=== PATIENT | male | born 1970 | race Caucasian/White ===

== ENCOUNTER 2016-07-20 09:23 | Emergency (ER) | payer BC ==
--- NOTE | 2016-07-20 11:23 | EDDOCDS ---
Physician Documentation [facility] Name: Manuel Silva Age: 45 yrs Sex: Male : 1970 Arrival Date: 07/20/2016 Time: 09:23 Bed PR Private MD: No Pcp Disposition: 07/20/16 10:58 Discharged to Home/Self Care. Impression: Sprain of tibiofibular ligament of left ankle. - Condition is Stable. - Discharge Instructions: Elastic Bandage and RICE, Ankle Sprain, [id number], Stirrup Ankle Brace, Obnu-yq-Cvqz. - Medication Reconciliation, Local Pharmacy Hours form. - Follow up: Orthopaedics, [facility]; When: Call to arrange an appointment; Reason: Further diagnostic work-up, Recheck today's complaints, Continuance of care. - Problem is new. - Symptoms are unchanged. Historical: - Allergies: no known allergies; - Home Meds: 1. none - PMHx: none; - PSHx: none; - Social history: Smoking status: Patient uses tobacco products, heavy tobacco smoker. No barriers to communication noted, The patient speaks fluent Urdu. - Family history: No immediate family members are acutely ill. - : The pt / caregiver states he / she is not on anticoagulants. Home medication list is obtained from the patient. - Exposure Risk Screening:: None identified. Vital Signs: 07/20 09:26 BP 128 / 78; Pulse 70; Resp 16; Temp 97.1(O); Pulse Ox 100% ; Weight 79.38 kg / 175 cmb lbs; Height 5 ft. 11 in. (180.34 cm); Pain 7/10; 11:09 BP 125 / 82; Pulse 73; Resp 16; Temp 99.1(TE); Pulse Ox 98% on R/A; Pain 5/10; ar3 09:26 Body Mass Index 24.41 (79.38 kg, 180.34 cm) cmb MDM: 09:39 Ankle, Complete Ordered. EDMS 09:47 Financial registration complete. lg 10:58 Gilberto Wrap ordered. btw 10:58 Apply Air Cast to Patient. ordered. btw Signatures: Dispatcher [employer] EDRosario Manning, Wolfgang Goss lg Josh Cazares PA PA btw Jasmyne Madera RN RN mk4 Adán Heath,RN RN mb9 LEXISD
--- NOTE | 2016-07-20 11:23 | EDDOCDS ---
Nurse's Notes [facility] Name: Manuel Silva Age: 45 yrs Sex: Male : 1970 Arrival Date: 07/20/2016 Time: 09:23 Bed PR Private MD: No Pcp Diagnosis: Sprain of tibiofibular ligament of left ankle Presentation: 07/20 09:33 Presenting complaint: Patient states: slipped on ice this am and injured left ankle. mk4 Adult Sepsis Screening: The patient does not have new or worsening altered mentation. Patient's respiratory rate is less than 22. Systolic blood pressure is greater than 100. Patient has a qSOFA score of 0- Negative Sepsis Screen. Suicide/Homicide risk assessment- the patient denies having any suicidal and/or homicidal ideations and does not present with any other emotional, behavioral or mental health complaints. 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 Transition of care: patient was not received from another setting of care. 09:33 Acuity: ASHA Level 4 mk4 09:33 Method Of Arrival: Walkin/Carried/Asstd mk4 Triage Assessment: 09:34 General: Appears uncomfortable. Pain: Location: left lateral ankle Pain currently is 7 mk4 out of 10 on a pain scale. HIV screening NA for this visit Offered previously. Musculoskeletal: No deficits noted. Historical: - Allergies: no known allergies; - Home Meds: 1. none - PMHx: none; - PSHx: none; - Social history: Smoking status: Patient uses tobacco products, heavy tobacco smoker. No barriers to communication noted, The patient speaks fluent Lithuanian. - Family history: No immediate family members are acutely ill. - : The pt / caregiver states he / she is not on anticoagulants. Home medication list is obtained from the patient. - Exposure Risk Screening:: None identified. Screenin:20 Screening information is obtained from the patient. Fall risk: No risks identified. mb9 Assistance ADL's: requires no assistance with activities of daily living. Abuse/DV Screen: The patient / caregiver reports he/she is: not in a situation that causes fear, pain or injury. Nutritional screening: No deficits noted. Advance Directives: There is no active DNR order. home support is adequate. Assessment: 11:20 General: Appears uncomfortable, Behavior is appropriate for age, cooperative. Pain: mb9 Location: left lateral ankle Pain currently is 3 out of 10 on a pain scale. Musculoskeletal: Circulation, motion, and sensation intact Capillary refill < 3 seconds Range of motion limited in left ankle. Vital Signs: 09:26 BP 128 / 78; Pulse 70; Resp 16; Temp 97.1(O); Pulse Ox 100% ; Weight 79.38 kg; Height 5 cmb ft. 11 in. (180.34 cm); Pain 7/10; 11:09 BP 125 / 82; Pulse 73; Resp 16; Temp 99.1(TE); Pulse Ox 98% on R/A; Pain 5/10; ar3 09:26 Body Mass Index 24.41 (79.38 kg, 180.34 cm) cmb Vitals: 09:26 Log In Time: July 20, 2016 at 09:22. cmb ED Course: 09:24 Patient visited by Darlene Pedersen. cmb 09:24 Patient moved to Waiting cmb 09:26 No Pcp is Private Physician. cmb 09:26 Patient moved to Pre RCE cmb 09:34 Triage Initiated mk4 09:34 Patient moved to Triage 3 mk4 09:35 Josh Cazares PA is PHCP. btw 09:35 Jyothi Garrett MD is Attending Physician. btw 09:35 Patient visited by Josh Cazares PA. btw 09:41 Patient moved to TR1 kcs 10:[facility]. btw 11:04 Patient moved to PR1 / 25 ar3 11:09 Patient visited by Claudette Meneses PCA. ar3 11:13 Patient name changed from Manuel\S\J\S\[place]\S\ to Manuel\S\Jameson\S\Ricardo. EDMS 11:20 The patient / caregiver is instructed regarding the plan of care and ED course. mb9 11:20 No IV's were initiated during this patient's visit. No procedures done that require mb9 assistance. 11:22 Gilberto wrap to left ankle. Patient has positive distal pulse, brisk capillary refill, and mb9 positive sensation after application. Air stirrup applied to left ankle Patient with positive distal sensation and brisk distal capillary refill after application. Order Results: There are currently no results for this order. Outcome: 10:58 Discharge ordered by Provider. btw 11:20 Discharge Assessment: Patient awake, alert and oriented x 3. No cognitive and/or mb9 functional deficits noted. Patient verbalized understanding of disposition instructions. patient administered narcotics - no. The following High Risk Discharge criteria are identified: None. Discharged to home ambulatory. Condition: good Condition: stable Condition: improved. Discharge instructions given to patient, Instructed on discharge instructions, follow up and referral plans. medication usage, Rest, Ice, Compression and Elevation. Demonstrated understanding of instructions, medications, Pt was receptive of discharge instructions/ teaching. No special radiology studies were completed. Property :Personal belongings accompany Pt. 11:22 Patient left the ED. mb9 Signatures: Dispatcher [employer] EDMS Salina Huston, RN RN Claudette Maier, JUDGE'S CLERK JUDGE'S CLERK ar3 Josh Cazares PA PA Darlene Jamison Margaret RN RN mk4 Adán Heath RN RN mb9 MTDMayuri
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
--- NOTE | 2016-07-22 12:23 | EDDOCDS ---
Physician Documentation [facility] Name: Manuel Silva Age: 45 yrs Sex: Male : 1970 Arrival Date: 07/20/2016 Time: 09:23 Bed PR Private MD: No Pcp Disposition: 07/20/16 10:58 Discharged to Home/Self Care. Impression: Sprain of tibiofibular ligament of left ankle. - Condition is Stable. - Discharge Instructions: Elastic Bandage and RICE, Ankle Sprain, Drug-yp-Dmsa, Stirrup Ankle Brace, Rvkp-vq-[id number]. - Medication Reconciliation, Local Pharmacy Hours form. - Follow up: Orthopaedics, [facility]; When: Call to arrange an appointment; Reason: Further diagnostic work-up, Recheck today's complaints, Continuance of care. - Problem is new. - Symptoms are unchanged. Historical: - Allergies: no known allergies; - Home Meds: 1. none - PMHx: none; - PSHx: none; - Social history: Smoking status: Patient uses tobacco products, heavy tobacco smoker. No barriers to communication noted, The patient speaks fluent Vietnamese. - Family history: No immediate family members are acutely ill. - : The pt / caregiver states he / she is not on anticoagulants. Home medication list is obtained from the patient. - Exposure Risk Screening:: None identified. Vital Signs: 07/20 09:26 BP 128 / 78; Pulse 70; Resp 16; Temp 97.1(O); Pulse Ox 100% ; Weight 79.38 kg / 175 cmb lbs; Height 5 ft. 11 in. (180.34 cm); Pain 7/10; 11:09 BP 125 / 82; Pulse 73; Resp 16; Temp 99.1(TE); Pulse Ox 98% on R/A; Pain 5/10; ar3 09:26 Body Mass Index 24.41 (79.38 kg, 180.34 cm) cmb MDM: 09:39 Ankle, Complete Ordered. EDMS 09:47 Financial registration complete. lg 10:58 Gilberto Wrap ordered. btw 10:58 Apply Air Cast to Patient. ordered. btw 11:23 [facility] Payment Agreement was scanned into [employer] and attached to record. lg 12:36 T-Sheet-- Draft Copy was scanned into [employer] and attached to record. gb Signatures: Dispatcher [employer] EDMS Brianda Ngo, Reg Reg gb Rosario Long, Reg Reg lg Josh Cazares PA PA btw King, Margaret, RN RN mk4 Adán HeathRN RN mb9 The chart was reviewed and I authenticate all verbal orders and agree with the evaluation and treatment provided.Attachments: 11:23 [facility] Payment Agreement lg 12:36 T-Sheet-- Draft Copy gb Chart Complete MTDD
--- NOTE | 2016-07-22 12:23 | EDDOCDS ---
Nurse's Notes [facility] Name: Manuel Silva Age: 45 yrs Sex: Male : 1970 Arrival Date: 07/20/2016 Time: 09:23 Bed PR Private MD: No Pcp Diagnosis: Sprain of tibiofibular ligament of left ankle Presentation: 07/20 09:33 Presenting complaint: Patient states: slipped on ice this am and injured left ankle. mk4 Adult Sepsis Screening: The patient does not have new or worsening altered mentation. Patient's respiratory rate is less than 22. Systolic blood pressure is greater than 100. Patient has a qSOFA score of 0- Negative Sepsis Screen. Suicide/Homicide risk assessment- the patient denies having any suicidal and/or homicidal ideations and does not present with any other emotional, behavioral or mental health complaints. Status: Patient is not a escalator service mechanic or dependent. Transition of care: patient was not received from another setting of care. 09:33 Acuity: ASHA Level 4 mk4 09:33 Method Of Arrival: Walkin/Carried/Asstd mk4 Triage Assessment: 09:34 General: Appears uncomfortable. Pain: Location: left lateral ankle Pain currently is 7 mk4 out of 10 on a pain scale. HIV screening NA for this visit Offered previously. Musculoskeletal: No deficits noted. Historical: - Allergies: no known allergies; - Home Meds: 1. none - PMHx: none; - PSHx: none; - Social history: Smoking status: Patient uses tobacco products, heavy tobacco smoker. No barriers to communication noted, The patient speaks fluent Korean. - Family history: No immediate family members are acutely ill. - : The pt / caregiver states he / she is not on anticoagulants. Home medication list is obtained from the patient. - Exposure Risk Screening:: None identified. Screenin:20 Screening information is obtained from the patient. Fall risk: No risks identified. mb9 Assistance ADL's: requires no assistance with activities of daily living. Abuse/DV Screen: The patient / caregiver reports he/she is: not in a situation that causes fear, pain or injury. Nutritional screening: No deficits noted. Advance Directives: There is no active DNR order. home support is adequate. Assessment: 11:20 General: Appears uncomfortable, Behavior is appropriate for age, cooperative. Pain: mb9 Location: left lateral ankle Pain currently is 3 out of 10 on a pain scale. Musculoskeletal: Circulation, motion, and sensation intact Capillary refill < 3 seconds Range of motion limited in left ankle. Vital Signs: 09:26 BP 128 / 78; Pulse 70; Resp 16; Temp 97.1(O); Pulse Ox 100% ; Weight 79.38 kg; Height 5 cmb ft. 11 in. (180.34 cm); Pain 7/10; 11:09 BP 125 / 82; Pulse 73; Resp 16; Temp 99.1(TE); Pulse Ox 98% on R/A; Pain 5/10; ar3 09:26 Body Mass Index 24.41 (79.38 kg, 180.34 cm) cmb Vitals: 09:26 Log In Time: July 20, 2016 at 09:22. cmb ED Course: 09:24 Patient visited by Darlene Pedersen. cmb 09:24 Patient moved to Waiting cmb 09:26 No Pcp is Private Physician. cmb 09:26 Patient moved to Pre RCE cmb 09:34 Triage Initiated mk4 09:34 Patient moved to Triage 3 mk4 09:35 Josh Cazares PA is PHCP. btw 09:35 Jyothi Garrett MD is Attending Physician. btw 09:35 Patient visited by Josh Cazares PA. btw 09:41 Patient moved to TR1 kcs 10:58 [facility]. btw 11:04 Patient moved to PR1 / 25 ar3 11:09 Patient visited by Claudette Meneses PCA. ar3 11:13 Patient name changed from Manuel\S\J\S\[place]\S\ to Manuel\S\[place]on\S\Ricardo. EDMS 11:20 The patient / caregiver is instructed regarding the plan of care and ED course. mb9 11:20 No IV's were initiated during this patient's visit. No procedures done that require mb9 assistance. 11:22 Gilberto wrap to left ankle. Patient has positive distal pulse, brisk capillary refill, and mb9 positive sensation after application. Air stirrup applied to left ankle Patient with positive distal sensation and brisk distal capillary refill after application. 11:23 [facility] Payment Agreement was scanned into [employer] and attached to record. lg 12:36 T-Sheet-- Draft Copy was scanned into [employer] and attached to record. gb 16:37 Ankle, Complete Returned. EDMS Order Results: Radiology Order: Ankle, Complete Test: Ankle, Complete REASON FOR EXAMINATION: Trauma; LEFT ANKLE, FOUR VIEWS:; ; HISTORY: Trauma.; ; There is no acute fracture or dislocation. The joint space is normal in; appearance.; ; IMPRESSION:; ; There is no acute fracture or dislocation.; ; ; Signed by; Virgilio Flanagan MD 07/20/2016 04:17 P; Outcome: 10:58 Discharge ordered by Provider. btw 11:20 Discharge Assessment: Patient awake, alert and oriented x 3. No cognitive and/or mb9 functional deficits noted. Patient verbalized understanding of disposition instructions. patient administered narcotics - no. The following High Risk Discharge criteria are identified: None. Discharged to home ambulatory. Condition: good Condition: stable Condition: improved. Discharge instructions given to patient, Instructed on discharge instructions, follow up and referral plans. medication usage, Rest, Ice, Compression and Elevation. Demonstrated understanding of instructions, medications, Pt was receptive of discharge instructions/ teaching. No special radiology studies were completed. Property :Personal belongings accompany Pt. 11:22 Patient left the ED. mb9 Signatures: Dispatcher [employer] EDDE Salina Huston, RN RN [facility] Brianda Ngo, Reg Reg gb Rosario Long, Reg Reg lg Claudette Meneses, SAP BW DEVELOPER SAP BW DEVELOPER ar3 Josh Cazares, NATI PA btDarlene Valdez Margaret RN RN mk4 Adán Heath RN RN mb9 Chart Complete MTDD
--- NOTE | 2016-07-22 12:23 | EDDOCDS ---
Physician Documentation [facility] Name: Manuel Silva Age: 45 yrs Sex: Male : 1970 Arrival Date: 07/20/2016 Time: 09:23 Bed PR Private MD: No Pcp Disposition: 07/20/16 10:58 Discharged to Home/Self Care. Impression: Sprain of tibiofibular ligament of left ankle. - Condition is Stable. - Discharge Instructions: Elastic Bandage and RICE, Ankle Sprain, Szoz-ty-Ilhe, Stirrup Ankle Brace, Iotc-wy-Bmtt. - Medication Reconciliation, Local Pharmacy Hours form. - Follow up: Orthopaedics, [facility]; When: Call to arrange an appointment; Reason: Further diagnostic work-up, Recheck today's complaints, Continuance of care. - Problem is new. - Symptoms are unchanged. Historical: - Allergies: no known allergies; - Home Meds: 1. none - PMHx: none; - PSHx: none; - Social history: Smoking status: Patient uses tobacco products, heavy tobacco smoker. No barriers to communication noted, The patient speaks fluent Slovak. - Family history: No immediate family members are acutely ill. - : The pt / caregiver states he / she is not on anticoagulants. Home medication list is obtained from the patient. - Exposure Risk Screening:: None identified. Vital Signs: 07/20 09:26 BP 128 / 78; Pulse 70; Resp 16; Temp 97.1(O); Pulse Ox 100% ; Weight 79.38 kg / 175 cmb lbs; Height 5 ft. 11 in. (180.34 cm); Pain 7/10; 11:09 BP 125 / 82; Pulse 73; Resp 16; Temp 99.1(TE); Pulse Ox 98% on R/A; Pain 5/10; ar3 09:26 Body Mass Index 24.41 (79.38 kg, 180.34 cm) cmb MDM: 09:39 Ankle, Complete Ordered. EDMS 09:47 Financial registration complete. lg 10:58 Gilberto Wrap ordered. btw 10:58 Apply Air Cast to Patient. ordered. btw 11:23 [facility] Payment Agreement was scanned into [email or web address] and attached to record. lg 12:36 T-Sheet-- Draft Copy was scanned into [email or web address] and attached to record. gb Signatures: Dispatcher [employer] EDMS Brianda Ngo, Reg Reg gb Rosario Long, Reg Reg lg Josh Cazares PA PA btw King, Margaret, RN RN mk4 Adán HeathRN RN mb9 The chart was reviewed and I authenticate all verbal orders and agree with the evaluation and treatment provided.Attachments: 11:23 [facility] Payment Agreement lg 12:36 T-Sheet-- Draft Copy gb Chart Complete MTDD
== END 2016-07-20 11:22 | disposition home or self-care (01) ==
LOC: M ED 09:23
DX: S93.602A Unspecified sprain of left foot, initial encounter (principal); W00.0XXA Fall on same level due to ice and snow, initial encounter; Y92.019 Unspecified place in single-family (private) house as the place of occurrence of the external cause; Y93.01 Activity, walking, marching and hiking; Y99.8 Other external cause status; F17.210 Nicotine dependence, cigarettes, uncomplicated

== ENCOUNTER 2017-06-30 15:45 | Emergency (ER) | payer BC, OTHER ==
[~2017-06-30] VITALS: Ht 180.3 cm; Wt 79.5 kg
[2017-06-30 15:45] VITALS: BP 149/86
[2017-06-30] MEDS ORDERED: IBUPROFEN 600 MG TAB PO ONE (17:15)
[2017-06-30] MEDS ORDERED: CIPR-249 PO (18:11)
--- NOTE | 2017-06-30 19:31 | REP ---
REASON FOR EXAM: Pain. COMPARISON: None. Right testicle measures 4.3 x 2.4 x 3.1 cm and the left 4.0 x 2.3 x 3 cm. The testicular parenchymal echo pattern and vascular pattern is normal bilaterally. The epididymal echo pattern and vascular pattern is normal bilaterally. There are incidental bilateral spermatoceles. They are rather large on the left with the largest one measuring approximately 3 cm in its greatest dimension. There is no evidence of a hydrocele. The right testicular RI is 0.6 and the left is 0.58. IMPRESSION: Bilateral spermatoceles. Signed by Chon Aguilar DO 06/30/2017 07:41 P
== END 2017-06-30 18:42 | disposition home or self-care (01) ==
LOC: M ED 15:45
DX: N45.1 Epididymitis (principal); F17.200 Nicotine dependence, unspecified, uncomplicated; N43.40 Spermatocele of epididymis, unspecified

== ENCOUNTER 2017-07-20 16:17 | Emergency (ER) | payer OTHER ==
[2017-07-20] MEDS ORDERED: AMOXICILLIN SUSP 400 MG/5 ML ORAL SYRINGE *ED PO (18:45)
[2017-07-20] MEDS: IBUPROFEN 800 MG TAB PO (19:15)
[2017-07-20] MEDS: PERCOCET 5MG/325MG TAB PO (19:16)
[2017-07-20 20:47] LABS: BASO # 0.1 10^3/uL (0.0-0.2); BASO % 0.5 % (0.0-1.0); EOS # 0.3 10^3/uL (0.0-0.50); EOS % 2.3 % (0.0-3.0); HEMATOCRIT 44.1 % (42.0-52.0); HEMOGLOBIN 14.8 g/dl (14.0-18.0); IMMATURE GRANULOCYTE # 0.1 10^3/uL (0-0); IMMATURE GRANULOCYTE % 0.4 % (0-0); LYMPH # 2.2 10^3/uL (1.5-4.5); LYMPH % 18.3 % (24.0-44.0); MEAN CORPUSCULAR HEMOGLOBIN 30.7 pg (27.0-33.0); MEAN CORPUSCULAR HGB CONC 33.6 g/dl (32.0-36.5); MEAN CORPUSCULAR VOLUME 91.5 fl (80.0-96.0); MONO # 0.9 10^3/uL (0.0-0.8); MONO % 7.4 % (0.0-5.0); NEUTROPHILS # 8.5 10^3/uL (1.8-7.7); NEUTROPHILS % 71.1 % (36.0-66.0); PLATELET COUNT, AUTOMATED 212 10^3/uL (150-450); RED BLOOD COUNT 4.82 10^6/uL (4.30-6.10); RED CELL DISTRIBUTION WIDTH 13.2 % (11.5-14.5); WHITE BLOOD COUNT 11.9 10^3/uL (4.0-10.0)
[2017-07-20] MEDS: AMPICILLIN SOD/SULBACTAM SOD 3 GM in D5W MINI-BAG PLUS 100 ML IV (20:48)
[2017-07-20] MEDS: NS 1,000 ML IV (20:48)
[2017-07-20] MEDS: ONDANSETRON 4MG/2ML VIAL (J2405) IV (21:02)
[2017-07-20] MEDS: MORPHINE 4 MG/ML 1ML SYRINGE IV (21:02)
[2017-07-20 21:14] LABS: ALBUMIN 3.6 GM/DL (3.2-5.2); ALKALINE PHOSPHATASE 98 U/L (45-117); ALT/SGPT 24 U/L (12-78); ANION GAP 7 MEQ/L (8-16); AST/SGOT 19 U/L (7-37); BILIRUBIN,TOTAL 0.6 MG/DL (0.2-1.0); BLOOD UREA NITROGEN 11 MG/DL (7-18); CALCIUM LEVEL 8.6 MG/DL (8.5-10.1); CARBON DIOXIDE LEVEL 25 MEQ/L (21-32); CHLORIDE LEVEL 105 MEQ/L (98-107); CREATININE FOR GFR 0.84 MG/DL (0.70-1.30); GLOMERULAR FILTRATION RATE > 60.0 (>60); GLUCOSE, FASTING 91 MG/DL (70-105); POTASSIUM SERUM 3.9 MEQ/L (3.5-5.1); SODIUM LEVEL 137 MEQ/L (136-145); TOTAL PROTEIN 8.1 GM/DL (6.4-8.2)
[2017-07-20] MEDS: diphenhydrAMINE INJ 50MG/ML VIAL (J1200) IV (21:45)
[2017-07-20 22:21] LABS: KETONE, URINE AUTO RFX TRACE mg/dL (NEGATIVE); LEUKOCYTE ESTERASE UR AUTO RFX NEGATIVE (NEGATIVE); MUCUS, URINE RFX SMALL (NEGATIVE); NITRITE, URINE AUTO RFX NEGATIVE (NEGATIVE); RBC, URINE AUTO RFX 7 /HPF (0-3); SPECIFIC GRAVITY UR AUTO RFX 1.028 (1.002-1.035); SQUAM EPITHELIAL CELL UR AURFX 0 /HPF (0-6); WBC, URINE AUTO RFX 3 /HPF (0-3)
[2017-07-20 23:46] LABS: CHLAMYDIA DNA AMPLIFICATION NEGATIVE (NEGATIVE); GC DNA AMPLIFICATION NEGATIVE (NEGATIVE)
== END 2017-07-20 22:20 | disposition home or self-care (01) ==
LOC: M ED 16:17
DX: N45.3 Epididymo-orchitis (principal); F17.200 Nicotine dependence, unspecified, uncomplicated
CPT/HCPCS: J1200

== ENCOUNTER → 2017-08-02 | Outpatient (CLI) | payer OTHER ==
[2017-08-02 11:26] LABS: INR 0.97
[2017-08-02 11:27] LABS: PARTIAL THROMBOPLASTIN TIME 29.3 SECONDS (26.8-37.9)
== END ==
LOC: M LAB 10:34
DX: Z01.818 Encounter for other preprocedural examination (principal); N50.3 Cyst of epididymis; R91.8 Other nonspecific abnormal finding of lung field
CPT/HCPCS: 71046

== ENCOUNTER 2017-08-12 11:11 | Day surgery (SDC) | payer OTHER ==
[~2017-08-12 11:11] MED LIST: LIDOCAINE 2% INJ 100 MG/5 ML SDV (FOR ANES.) As Ordered; MIDAZOLAM INJ 2 MG/2 ML VIAL (J2250) As Ordered; ONDANSETRON 4MG/2ML VIAL (J2405) As Ordered; PROPOFOL 200 MG/20 ML VIAL As Ordered; dexameTHASONE 4 MG/ML 1ML VIAL (J1100) As Ordered; fentaNYL 100 MCG/2 ML INJECTION (J3010) As Ordered
[2017-08-12] MEDS: LR 1,000 ML IV (11:54)
[2017-08-12] MEDS: BACITRACIN OINT 30GM As Ordered (15:05)
[2017-08-12] MEDS: BUPIVACAINE HCL 0.25% 30 ML VIAL As Ordered (15:11)
[2017-08-12] MEDS: LIDOCAINE 1% SDV INJ 30 ML VIAL As Ordered (15:11)
[2017-08-12] MEDS ORDERED: fentaNYL 100 MCG/2 ML INJECTION (J3010) As Ordered (15:37)
[2017-08-12] MEDS: fentaNYL 100 MCG/2 ML INJECTION (J3010) IV ×4 (15:39→15:55)
[2017-08-12] MEDS ORDERED: ONDANSETRON 4MG/2ML VIAL (J2405) IV (15:45)
[2017-08-12] MEDS ORDERED: LR 1,000 ML IV (15:45)
[2017-08-12] MEDS ORDERED: traMADol 50 MG TAB PO (15:45)
[2017-08-12] MEDS: traMADol 50 MG TAB PO (16:55)
== END 2017-08-12 17:35 | disposition home or self-care (01) ==
LOC: M SDC 11:11
DX: N50.3 Cyst of epididymis (principal); L40.9 Psoriasis, unspecified; R93.8 Abnormal findings on diagnostic imaging of other specified body structures; Z88.5 Allergy status to narcotic agent; Z79.899 Other long term (current) drug therapy; Z72.0 Tobacco use
CPT/HCPCS: 54840

== ENCOUNTER → 2017-11-15 | Outpatient (CLI) | payer OTHER | LOC: M PLARAD 08:25 | DX: R93.8 Abnormal findings on diagnostic imaging of other specified body structures (principal) | CPT/HCPCS: 78815 ==

== ENCOUNTER → 2018-04-11 | Outpatient (REF) | payer OTHER | LOC: M LAB REF 13:16 | DX: J44.9 Chronic obstructive pulmonary disease, unspecified (principal) ==

== ENCOUNTER → 2018-06-05 | Outpatient (CLI) | payer OTHER | LOC: M RAD 16:03 | DX: J44.9 Chronic obstructive pulmonary disease, unspecified (principal); J90 Pleural effusion, not elsewhere classified | CPT/HCPCS: 71250 ==

== ENCOUNTER → 2020-05-01 | Outpatient (CLI) | payer OTHER ==
[~2020-05-01] MED LIST changes: +CIPR-249 PO; +DOXY-350 PO; +IBUP80TA PO; -LIDOCAINE 2% INJ 100 MG/5 ML SDV (FOR ANES.) As Ordered; -MIDAZOLAM INJ 2 MG/2 ML VIAL (J2250) As Ordered; -ONDANSETRON 4MG/2ML VIAL (J2405) As Ordered; -PROPOFOL 200 MG/20 ML VIAL As Ordered; +TRAM50TA2 PO; +TYLE325T5 PO; -dexameTHASONE 4 MG/ML 1ML VIAL (J1100) As Ordered; -fentaNYL 100 MCG/2 ML INJECTION (J3010) As Ordered
--- NOTE | 2020-05-01 13:37 | REP ---
INDICATION: PNEUMONCROMOTOSIS COMPARISON: 06/05/2018 TECHNIQUE: Axial noncontrast images from the thoracic inlet to the upper abdomen with coronal and sagittal reformations. FINDINGS: Chronic COPD/emphysematous changes with scattered scarring noted along with chronic changes to the right hemithorax including volume loss, pleural thickening, scattered fibrosis/scarring, and presumed chronic rounded atelectasis involving the apical right lower lobe. No new acute consolidation, obvious suspicious nodule or mass lesion. No acute effusion or pneumothorax. Tracheobronchial tree is relatively patent. Mediastinum demonstrates normal/stable thoracic aorta, pulmonary vasculature, and heart/pericardium. Thyroid gland is unremarkable. No significant adenopathy. Musculoskeletal structures without acute osseous abnormality. Limited upper abdomen demonstrates normal bilateral adrenal glands. IMPRESSION: Chronic changes primarily involving the right hemithorax stable compared to 06/05/2018. No new acute process appreciated. <Electronically signed by Haroldo Sidhu > 05/01/20 [id number]
== END ==
LOC: M RAD 12:16
PROVIDERS: ATTEND Internal Medicine Pulmonary Disease
DX: J61 Pneumoconiosis due to asbestos and other mineral fibers (principal)

== ENCOUNTER 2020-06-24 19:57 | Emergency (ER) | payer OTHER ==
[~2020-06-24] VITALS: Ht 180.3 cm; Wt 92.2 kg
[2020-06-24] MEDS ORDERED: ONDANSETRON 4MG/2ML VIAL IV ONE (20:15)
[2020-06-24] MEDS ORDERED: fentaNYL 100 MCG/2 ML INJECTION (J3010) IV ONE ×2 (20:15→22:30)
[2020-06-24 20:26] LABS: HEMATOCRIT 43.6 % (42.0-52.0); MEAN CORPUSCULAR HEMOGLOBIN 30.1 pg (27.0-33.0); MEAN CORPUSCULAR HGB CONC 32.1 g/dl (32.0-36.5); MEAN CORPUSCULAR VOLUME 93.8 fl (80.0-96.0); PLATELET COUNT, AUTOMATED 214 10^3/uL (150-450); RED BLOOD COUNT 4.65 10^6/uL (4.30-6.10); WHITE BLOOD COUNT 9.1 10^3/uL (4.0-10.0)
[2020-06-24 20:52] LABS: ALBUMIN 3.6 GM/DL (3.2-5.2); ALT/SGPT 46 U/L (12-78); BILIRUBIN,DIRECT < 0.1 MG/DL (0.0-0.2); BILIRUBIN,TOTAL 0.2 MG/DL (0.2-1.0); BLOOD UREA NITROGEN 14 MG/DL (7-18); CARBON DIOXIDE LEVEL 25 MEQ/L (21-32); CHLORIDE LEVEL 105 MEQ/L (98-107); CREATININE FOR GFR 0.98 MG/DL (0.70-1.30); GLOMERULAR FILTRATION RATE > 60.0 (>56); GLUCOSE, FASTING 99 MG/DL (70-100); POTASSIUM SERUM 3.8 MEQ/L (3.5-5.1); SODIUM LEVEL 138 MEQ/L (136-145); TOTAL PROTEIN 7.6 GM/DL (6.4-8.2)
[2020-06-24] MEDS ORDERED: ISOVUE-370 76% 100ML VIAL As Ordered ONE (21:19)
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
[2020-06-24] MEDS ORDERED: PERC5TAB12 PO (23:06)
[2020-06-24] MEDS ORDERED: OXYCODONE/APAP 5MG/325MG(BULK FOR ED) 1 TABLET PO ONE (23:45)
[2020-06-25 00:30] VITALS: BP 120/68
--- NOTE | 2020-06-25 08:44 | ECGEPIP ---
[facility] - ED Test Date: 2020-06-24 Pat Name: CHRISTOPHER ROTH Department: Room: - Gender: Male [employer] Supervisor: rizwan : 1970 Requested By: ALICIA JEROME Order Number: [id number] Reading MD: Misael Elliott Measurements Intervals [place] Rate: 84 P: 44 [place]: 146 QRS: 1 QRSD: 118 T: 13 QT: 353 QTc: 418 Interpretive Statements SINUS RHYTHM Low QRS complex voltage in the limb leads Delayed anterior R wave progression Similar to tracing done 08-02-17 Electronically Signed on 06-25-2020 8:44:31 EST by Misael Elliott
== END 2020-06-25 00:50 | disposition home or self-care (01) ==
LOC: M ED 19:57
DX: S22.20XA Unspecified fracture of sternum, initial encounter for closed fracture (principal); S16.1XXA Strain of muscle, fascia and tendon at neck level, initial encounter; V49.00XA Driver injured in collision with unspecified motor vehicles in nontraffic accident, initial encounter; F17.200 Nicotine dependence, unspecified, uncomplicated; Z88.6 Allergy status to analgesic agent
CPT/HCPCS: 71260; 72125; 80048; 80076; 81001; 85027; 93005; 94010; 96374; 96375; 96376; 99284; J2405; J3010; Q9967

== ENCOUNTER → 2021-08-20 | Outpatient (CLI) | payer OTHER ==
[~2021-08-20] MED LIST changes: +PERC5TAB12 PO
== END ==
LOC: M RAD 15:15
PROVIDERS: ATTEND Internal Medicine Pulmonary Disease
DX: Z12.2 Encounter for screening for malignant neoplasm of respiratory organs (principal); Z87.891 Personal history of nicotine dependence

== ENCOUNTER → 2022-08-24 | Outpatient (CLI) | payer OTHER ==
[~2022-08-24] MED LIST changes: -DOXY-350 PO; +DOXY-444 PO
== END ==
LOC: M RAD 13:56
PROVIDERS: ATTEND Internal Medicine Critical Care Medicine
DX: Z12.2 Encounter for screening for malignant neoplasm of respiratory organs (principal); F17.210 Nicotine dependence, cigarettes, uncomplicated

== ENCOUNTER 2023-07-29 12:46 | Inpatient (IN) | payer OTHER, SELFPAY ==
[~2023-07-29] VITALS: Ht 180.3 cm; Wt 86.4 kg
[2023-07-29] MEDS ORDERED: IPRATROPIUM 0.5MG/ALBUTEROL 2.5MG INH SOL UD 3ML (DUONEB) NEB ONE ×2 (14:50→17:00)
[2023-07-29] MEDS ORDERED: methylPREDNISolone 125MG 2ML VIAL IV ONE (14:50)
[2023-07-29] MEDS ORDERED: ALBUTEROL SULFATE 2.5MG/0.5ML INH NEB SOLN NEB ONE (14:50)
[2023-07-29 14:54] LABS: VENOUS BASE EXCESS -2.3 (-2.0-2.0); VENOUS HCO3 24.9 MMOL/L (23.0-27.0); VENOUS O2 SATURATION 80.1 % (60.0-80.0); VENOUS PARTIAL PRESSURE CO2 51.6 mmHg (38.0-50.0); VENOUS PARTIAL PRESSURE O2 45.9 mmHg (30.0-50.0); VENOUS PH 7.302 UNITS (7.330-7.430); VENOUS STANDARD HCO3 22.1 MMOL/L; VENOUS TOTAL CO2 26.5 MMOL/L (24.0-28.0)
[2023-07-29 15:10] LABS: BASO # 0.1 10^3/uL (0.0-0.2); BASO % 0.7 % (0.0-1.0); HEMATOCRIT 48.7 % (42.0-52.0); LYMPH # 1.6 10^3/uL (1.5-5.0); LYMPH % 9.9 % (24.0-44.0); MEAN CORPUSCULAR HEMOGLOBIN 30.7 pg (27.0-33.0); MEAN CORPUSCULAR HGB CONC 32.9 g/dl (32.0-36.5); MEAN CORPUSCULAR VOLUME 93.5 fl (80.0-96.0); NEUTROPHILS # 12.7 10^3/uL (1.5-8.5); PLATELET COUNT, AUTOMATED 267 10^3/uL (150-450); RED BLOOD COUNT 5.21 10^6/uL (4.30-6.10); WHITE BLOOD COUNT 16.4 10^3/uL (4.0-10.0)
[2023-07-29 15:32] LABS: BLOOD UREA NITROGEN 10 MG/DL (9-23); CALCIUM LEVEL 8.8 MG/DL (8.5-10.1); CARBON DIOXIDE LEVEL 27 MMOL/L (20-31); CHLORIDE LEVEL 106 MMOL/L (98-107); CREATININE FOR GFR 0.81 MG/DL (0.70-1.30); GLOMERULAR FILTRATION RATE > 60.0 (>56); GLUCOSE, FASTING 100 MG/DL (60-100); POTASSIUM SERUM 4.8 MMOL/L (3.5-5.1); SODIUM LEVEL 140 MMOL/L (136-145)
[2023-07-29] MEDS: MAG SULF 1GM/100ML (MAG RUN) 1 GM in IV 1 EA IV SCH ×2 (15:33→15:53)
[2023-07-29 15:58] LABS: ABG BASE EXCESS -3.1 (-2.0-2.0); ABG HCO3 21.8 MMOL/L (22.0-26.0); ABG O2 SATURATION 95.8 % (95.0-99.0); ABG PARTIAL PRESSURE CO2 38.5 mmHg (35.0-45.0); ABG PARTIAL PRESSURE O2 81.4 mmHg (75.0-100.0); ABG STANDARD HCO3 21.9 MMOL/L. (22.0-26.0); ABG TOTAL CO2 22.9 MMOL/L (22.0-29.0)
[2023-07-29] MEDS ORDERED: ISOVUE-370 76% 100ML VIAL As Ordered ONE (16:24)
[2023-07-29 16:34] LABS: CK-MB VALUE MASS 2.9 NG/ML (<3.6)
[2023-07-29 16:35] LABS: ALBUMIN 3.7 G/DL (3.2-5.2); BILIRUBIN,DIRECT 0.3 MG/DL (<0.4); BILIRUBIN,TOTAL 0.8 MG/DL (0.3-1.2); MB/CK RELATIVE INDEX 1.09 (< OR =4); TOTAL PROTEIN 7.1 G/DL (5.7-8.2)
[2023-07-29 17:25] LABS: CK-MB VALUE MASS 2.5 NG/ML (<3.6)
[2023-07-29 17:26] LABS: MB/CK RELATIVE INDEX 0.95 (< OR =4)
[2023-07-29] MEDS ORDERED: FLUT1BLS8 INH (19:03)
[2023-07-29] MEDS ORDERED: ALBU2.5V10 INH (19:03)
[2023-07-29] MEDS ORDERED: ALBU8.5H INH (19:03)
[2023-07-29] MEDS ORDERED: MED REC IN PROGRESS XX SCH (19:05)
[2023-07-29] MEDS ORDERED: VITA100T91 PO (19:17)
[2023-07-29] MEDS ORDERED: VITA200012 PO (19:17)
[2023-07-29] MEDS ORDERED: MULT1TAB8 PO (19:17)
[2023-07-29] MEDS ORDERED: HOME MED LIST COMPLETE! XX SCH (19:25)
[2023-07-29] MEDS ORDERED: ACETAMINOPHEN TAB 650MG DOSE (2X325MG) PO PRN (20:05)
[2023-07-29] MEDS ORDERED: MOM 30ML SUSPENSION UDC PO PRN (20:05)
[2023-07-29] MEDS ORDERED: ALBUTEROL 90 MCG/ACT 8GM HFA INHALER INH PRN (20:05)
[2023-07-29] MEDS ORDERED: AZITHROMYCIN INJ 500 MG, VIAL MATE ADAPTER 1 EACH in NS 250 ML IV SCH (21:00)
[2023-07-29] MEDS: DOCUSATE SODIUM 100MG CAPSULE PO SCH (22:41)
[2023-07-29] MEDS: methylPREDNISolone 125MG 2ML VIAL IV SCH (22:53)
[2023-07-30] MEDS: IPRATROPIUM 0.5MG/ALBUTEROL 2.5MG INH SOL UD 3ML (DUONEB) NEB SCH ×4 (03:19→19:32)
[2023-07-30] MEDS: methylPREDNISolone 125MG 2ML VIAL IV SCH ×3 (06:10→22:34)
[2023-07-30 07:51] LABS: HEMATOCRIT 44.9 % (42.0-52.0); HEMOGLOBIN 14.8 g/dl (13.5-17.5); MEAN CORPUSCULAR HEMOGLOBIN 30.3 pg (27.0-33.0); PLATELET COUNT, AUTOMATED 256 10^3/uL (150-450); RED BLOOD COUNT 4.88 10^6/uL (4.30-6.10); WHITE BLOOD COUNT 13.8 10^3/uL (4.0-10.0)
[2023-07-30] MEDS: DOCUSATE SODIUM 100MG CAPSULE PO SCH ×2 (08:08→22:34)
[2023-07-30] MEDS: VITAMIN D 1,000 INTERNATIONAL UNITS TABLET PO SCH (08:08)
[2023-07-30] MEDS: ENOXAPARIN 40MG/0.4ML SYRINGE (J1650 PER 10MG) SC SCH (08:09)
[2023-07-30] MEDS: MULTIVITAMINS/MINERALS THERAP 1 TAB PO SCH (08:09)
[2023-07-30 08:18] LABS: BLOOD UREA NITROGEN 14 MG/DL (9-23); CALCIUM LEVEL 8.8 MG/DL (8.5-10.1); CARBON DIOXIDE LEVEL 26 MMOL/L (20-31); CHLORIDE LEVEL 105 MMOL/L (98-107); CREATININE FOR GFR 0.82 MG/DL (0.70-1.30); GLOMERULAR FILTRATION RATE > 60.0 (>56); GLUCOSE, FASTING 132 MG/DL (60-100); SODIUM LEVEL 133 MMOL/L (136-145)
[2023-07-30] MEDS: ADVAIR HFA 115/21MCG INHALER INH SCH ×2 (08:18→19:32)
[2023-07-30 12:30] VITALS: BP 130/67; TEMP 98.3; O2SAT 94
[2023-07-30 14:00] VITALS: BP 109/58; TEMP 98.8; O2SAT 93
[2023-07-30 20:00] VITALS: BP 109/55; TEMP 97.3; O2SAT 91; O2SAT 92
[2023-07-30 21:00] VITALS: O2SAT 92
[2023-07-30 22:00] VITALS: O2SAT 94
[2023-07-30] MEDS: AZITHROMYCIN 250MG TABLET PO SCH (22:53)
[2023-07-30 23:00] VITALS: O2SAT 92
[2023-07-31] VITALS (13 sets, daily range): BP systolic 113–134; BP diastolic 61–74; TEMP 97–97.8; O2SAT 88–94
[2023-07-31] MEDS: IPRATROPIUM 0.5MG/ALBUTEROL 2.5MG INH SOL UD 3ML (DUONEB) NEB SCH ×4 (01:20→22:00)
[2023-07-31] MEDS: methylPREDNISolone 125MG 2ML VIAL IV SCH ×3 (06:21→21:57)
[2023-07-31 07:48] LABS: HEMATOCRIT 41.8 % (42.0-52.0); MEAN CORPUSCULAR HEMOGLOBIN 30.4 pg (27.0-33.0); MEAN CORPUSCULAR HGB CONC 33.5 g/dl (32.0-36.5); MEAN CORPUSCULAR VOLUME 90.9 fl (80.0-96.0); PLATELET COUNT, AUTOMATED 247 10^3/uL (150-450)
[2023-07-31] MEDS: ADVAIR HFA 115/21MCG INHALER INH SCH ×2 (08:10→22:00)
[2023-07-31 08:19] LABS: BLOOD UREA NITROGEN 26 MG/DL (9-23); CALCIUM LEVEL 8.9 MG/DL (8.5-10.1); CARBON DIOXIDE LEVEL 26 MMOL/L (20-31); CHLORIDE LEVEL 104 MMOL/L (98-107); CREATININE FOR GFR 0.93 MG/DL (0.70-1.30); GLOMERULAR FILTRATION RATE > 60.0 (>56); GLUCOSE, FASTING 133 MG/DL (60-100); POTASSIUM SERUM 4.8 MMOL/L (3.5-5.1); SODIUM LEVEL 137 MMOL/L (136-145)
[2023-07-31] MEDS: DOCUSATE SODIUM 100MG CAPSULE PO SCH ×2 (10:33→21:58)
[2023-07-31] MEDS: VITAMIN D 1,000 INTERNATIONAL UNITS TABLET PO SCH (10:33)
[2023-07-31] MEDS: ENOXAPARIN 40MG/0.4ML SYRINGE (J1650 PER 10MG) SC SCH (10:33)
[2023-07-31] MEDS: MULTIVITAMINS/MINERALS THERAP 1 TAB PO SCH (10:33)
[2023-07-31] MEDS: AZITHROMYCIN 250MG TABLET PO SCH (21:58)
[2023-08-01] MEDS: IPRATROPIUM 0.5MG/ALBUTEROL 2.5MG INH SOL UD 3ML (DUONEB) NEB SCH ×2 (02:03→07:33)
[2023-08-01 06:00] VITALS: BP 112/58; TEMP 98.1; O2SAT 92
[2023-08-01] MEDS: methylPREDNISolone 125MG 2ML VIAL IV SCH (06:11)
[2023-08-01 07:13] LABS: HEMATOCRIT 41.3 % (42.0-52.0); HEMOGLOBIN 13.6 g/dl (13.5-17.5); MEAN CORPUSCULAR HEMOGLOBIN 30.5 pg (27.0-33.0); MEAN CORPUSCULAR HGB CONC 32.9 g/dl (32.0-36.5); MEAN CORPUSCULAR VOLUME 92.6 fl (80.0-96.0); PLATELET COUNT, AUTOMATED 235 10^3/uL (150-450); RED BLOOD COUNT 4.46 10^6/uL (4.30-6.10); WHITE BLOOD COUNT 15.7 10^3/uL (4.0-10.0)
[2023-08-01 07:22] LABS: BLOOD UREA NITROGEN 23 MG/DL (9-23); CALCIUM LEVEL 8.4 MG/DL (8.5-10.1); CARBON DIOXIDE LEVEL 27 MMOL/L (20-31); CHLORIDE LEVEL 108 MMOL/L (98-107); GLOMERULAR FILTRATION RATE > 60.0 (>56); GLUCOSE, FASTING 115 MG/DL (60-100); POTASSIUM SERUM 4.4 MMOL/L (3.5-5.1); SODIUM LEVEL 140 MMOL/L (136-145)
[2023-08-01] MEDS: ADVAIR HFA 115/21MCG INHALER INH SCH (07:33)
[2023-08-01] MEDS ORDERED: PRED20TA PO (08:09)
[2023-08-01] MEDS ORDERED: ALBU8.5H INH (08:09)
[2023-08-01] MEDS ORDERED: PRED10TA2 PO (08:09)
[2023-08-01] MEDS: MULTIVITAMINS/MINERALS THERAP 1 TAB PO SCH (09:00)
[2023-08-01] MEDS: DOCUSATE SODIUM 100MG CAPSULE PO SCH (09:00)
[2023-08-01] MEDS: ENOXAPARIN 40MG/0.4ML SYRINGE (J1650 PER 10MG) SC SCH (09:00)
[2023-08-01] MEDS: VITAMIN D 1,000 INTERNATIONAL UNITS TABLET PO SCH (09:00)
== END 2023-08-01 11:59 | disposition home or self-care (01) | DRG 140 ==
LOC: M ED 12:46 → M ED INP 20:16 → M MS4PR 07-30 12:28
PROVIDERS: ADMIT Student in an Organized Health Care Education/Training Program; ATTEND Student in an Organized Health Care Education/Training Program
DX: J44.1 Chronic obstructive pulmonary disease with (acute) exacerbation (principal); J96.01 Acute respiratory failure with hypoxia; I24.89 Other forms of acute ischemic heart disease; E87.20 Acidosis, unspecified; K76.0 Fatty (change of) liver, not elsewhere classified; L40.9 Psoriasis, unspecified; N52.9 Male erectile dysfunction, unspecified; E55.9 Vitamin D deficiency, unspecified; Z79.899 Other long term (current) drug therapy; Z88.5 Allergy status to narcotic agent; Z20.822 Contact with and (suspected) exposure to COVID-19; Z87.891 Personal history of nicotine dependence

== ENCOUNTER → 2024-02-27 | Outpatient (CLI) | payer OTHER ==
[~2024-02-27] MED LIST changes: +ALBU2.5V10 INH; +ALBU8.5H INH; +DOXY-440 PO; -DOXY-444 PO; +FLUT1BLS8 INH; +MULT1TAB8 PO; +PRED10TA2 PO; +PRED20TA PO; +VITA100T91 PO; +VITA200012 PO
[2024-02-27 11:46] LABS: HEMATOCRIT 48.9 % (42.0-52.0); HEMOGLOBIN 16.3 g/dl (13.5-17.5); MEAN CORPUSCULAR HEMOGLOBIN 31.2 pg (27.0-33.0); MEAN CORPUSCULAR HGB CONC 33.3 g/dl (32.0-36.5); MEAN CORPUSCULAR VOLUME 93.7 fl (80.0-96.0); PLATELET COUNT, AUTOMATED 203 10^3/uL (150-450); RED BLOOD COUNT 5.22 10^6/uL (4.30-6.10); WHITE BLOOD COUNT 7.7 10^3/uL (4.0-10.0)
[2024-02-27 11:48] LABS: ALKALINE PHOSPHATASE 96 U/L (46-116); ALT/SGPT 28 U/L (7.0-40); AST/SGOT 18 U/L (<34); BILIRUBIN,TOTAL 0.6 MG/DL (0.3-1.2); BLOOD UREA NITROGEN 17 MG/DL (9-23); CALCIUM LEVEL 8.9 MG/DL (8.5-10.1); CARBON DIOXIDE LEVEL 30 MMOL/L (20-31); CHLORIDE LEVEL 104 MMOL/L (98-107); CHOLESTEROL LEVEL 167 MG/DL (<200); CHOLESTEROL RISK RATIO 5.73 (<5); CREATININE FOR GFR 0.95 MG/DL (0.70-1.30); GLOMERULAR FILTRATION RATE > 60.0 (>56); GLUCOSE, FASTING 99 MG/DL (60-100); HDL CHOLESTEROL 29.1 MG/DL (>40); LDL CHOLESTEROL 79.7 MG/DL (<100); NON-HDL-C 137.9 MG/DL; POTASSIUM SERUM 4.3 MMOL/L (3.5-5.1); PSA SCREENING 1.25 NG/ML (< 4.00); SODIUM LEVEL 137 MMOL/L (136-145); TOTAL PROTEIN 7.5 G/DL (5.7-8.2); TRIGLYCERIDES LEVEL 291 MG/DL (<150)
== END ==
LOC: M WUC 08:11
PROVIDERS: ATTEND Nurse Practitioner Adult Health
DX: Z00.00 Encounter for general adult medical examination without abnormal findings (principal); Z12.11 Encounter for screening for malignant neoplasm of colon; Z12.5 Encounter for screening for malignant neoplasm of prostate
CPT/HCPCS: 36415; 80053; 80061; 85027; G0103

== ENCOUNTER → 2024-02-27 | Outpatient (CLI) | payer OTHER ==
[2024-02-27 12:06] LABS: HEPATITIS B SURFACE ANTIGEN NEGATIVE (NEGATIVE)
[2024-02-27 12:19] LABS: HIV 1&2 SCREEN NEGATIVE (NEGATIVE)
[2024-02-27 12:27] LABS: HEPATITIS C VIRUS ABY INDEX 0.02 INDEX (<0.8)
[2024-02-27 12:28] LABS: HEPATITIS B CORE ANTIBODY IGM NEGATIVE (NEGATIVE)
== END ==
LOC: M WUC 08:13
PROVIDERS: ATTEND Physician Assistant
DX: L40.0 Psoriasis vulgaris (principal)

== ENCOUNTER → 2024-08-30 | Outpatient (CLI) | payer OTHER | LOC: M RAD 16:23 | PROVIDERS: ATTEND Internal Medicine Critical Care Medicine | DX: Z12.2 Encounter for screening for malignant neoplasm of respiratory organs (principal); Z87.891 Personal history of nicotine dependence ==

== ENCOUNTER 2024-11-25 09:04 | Inpatient (IN) | payer OTHER ==
[~2024-11-25] VITALS: Ht 177.8 cm; Wt 89.8 kg
[2024-11-25] MEDS: BUDESONIDE 180MCG INHALER (PULMICORT FLEXHALER) INH SCH (08:00)
[2024-11-25] MEDS ORDERED: SILD100T PO (09:11)
[2024-11-25] MEDS ORDERED: RISA150P SC (09:11)
[2024-11-25] MEDS: IPRATROPIUM 0.5MG/ALBUTEROL 2.5MG INH SOL UD 3ML NEB PRN (09:48)
[2024-11-25 09:54] LABS: VENOUS BASE EXCESS 1.4 (-2.0-2.0); VENOUS HCO3 26.5 MMOL/L (23.0-27.0); VENOUS PARTIAL PRESSURE CO2 43.6 mmHg (38.0-50.0); VENOUS PARTIAL PRESSURE O2 55.6 mmHg (30.0-50.0); VENOUS PH 7.402 UNITS (7.330-7.430); VENOUS STANDARD HCO3 25.4 MMOL/L; VENOUS TOTAL CO2 27.9 MMOL/L (24.0-28.0)
[2024-11-25] MEDS: methylPREDNISolone 125MG 2ML VIAL IV ONE (09:55)
[2024-11-25 10:01] LABS: BASO # 0.1 10^3/uL (0.0-0.2); EOS # 1.5 10^3/uL (0.0-0.5); EOS % 18.8 % (0.0-3.0); HEMATOCRIT 46.4 % (42.0-52.0); HEMOGLOBIN 15.7 g/dl (13.5-17.5); LYMPH # 1.4 10^3/uL (1.5-5.0); LYMPH % 17.6 % (24.0-44.0); MEAN CORPUSCULAR HEMOGLOBIN 31.9 pg (27.0-33.0); MEAN CORPUSCULAR HGB CONC 33.8 g/dl (32.0-36.5); MEAN CORPUSCULAR VOLUME 94.3 fl (80.0-96.0); MONO # 0.5 10^3/uL (0.0-0.8); MONO % 6.1 % (2.0-8.0); NEUTROPHILS # 4.3 10^3/uL (1.5-8.5); NEUTROPHILS % 56.2 % (36.0-66.0); PLATELET COUNT, AUTOMATED 216 10^3/uL (150-450); RED BLOOD COUNT 4.92 10^6/uL (4.30-6.10); WHITE BLOOD COUNT 7.7 10^3/uL (4.0-10.0)
[2024-11-25] MEDS ORDERED: ONDANSETRON 4MG 2ML VIAL IV PRN (10:05)
[2024-11-25 10:24] LABS: ALKALINE PHOSPHATASE 80 U/L (40-129); ALT/SGPT 26 U/L (7.0-40); AST/SGOT 17 U/L (<34); BILIRUBIN,DIRECT 0.2 MG/DL (<0.4); BILIRUBIN,TOTAL 0.7 MG/DL (0.3-1.2); BLOOD UREA NITROGEN 10 MG/DL (9-23); CALCIUM LEVEL 9.2 MG/DL (8.5-10.1); CARBON DIOXIDE LEVEL 28 MMOL/L (20-31); CHLORIDE LEVEL 105 MMOL/L (98-107); CREATININE FOR GFR 0.94 MG/DL (0.70-1.30); GLOMERULAR FILTRATION RATE > 90.0 (>56); GLUCOSE, FASTING 104 MG/DL (60-100); POTASSIUM SERUM 4.6 MMOL/L (3.5-5.1); SODIUM LEVEL 140 MMOL/L (136-145); TOTAL PROTEIN 7.5 G/DL (5.7-8.2)
[2024-11-25] MEDS: AZITHROMYCIN 250MG TABLET PO ONE (10:32)
[2024-11-25] MEDS: cefTRIAXone SOD 1 GM in DEXTROSE 5% (D5W) ADV/MINI-BAG 50 ML IV ONE (10:33)
[2024-11-25] MEDS ORDERED: IPRATROPIUM 0.5MG/ALBUTEROL 2.5MG INH SOL UD 3ML NEB PRN (10:55)
[2024-11-25] MEDS ORDERED: HOME MED LIST COMPLETE! XX SCH (11:00)
[2024-11-25] MEDS ORDERED: ISOVUE-370 76% 100ML VIAL As Ordered ONE (11:16)
[2024-11-25] MEDS: ENOXAPARIN 40MG/0.4ML SYRINGE (J1650 PER 10MG) SC SCH (11:19)
[2024-11-25 11:36] LABS: PROCALCITONIN <0.04 ng/ml
[2024-11-25 11:45] VITALS: BP 127/83; TEMP 97.7; O2SAT 90
[2024-11-25 12:00] VITALS: BP 127/83; TEMP 97.7; O2SAT 90
[2024-11-25] MEDS: SODIUM CHLORIDE HYPERTONIC 3% 4ML NEB SOL INH SCH (14:24)
[2024-11-25] MEDS: IPRATROPIUM 0.5MG/ALBUTEROL 2.5MG INH SOL UD 3ML NEB SCH (14:24)
[2024-11-25 20:45] VITALS: BP 139/66; TEMP 97.7; O2SAT 92
[2024-11-25 21:30] VITALS: O2SAT 89
[2024-11-25 21:35] VITALS: O2SAT 93
[2024-11-25] MEDS: DEXTROMETHORPHAN 60MG/10ML SUSP 90ML BTL(DELSYM) PO PRN (22:28)
[2024-11-26 04:00] VITALS: BP 132/70; TEMP 97; O2SAT 88
[2024-11-26 05:15] VITALS: O2SAT 87
[2024-11-26 05:20] VITALS: O2SAT 90
[2024-11-26 05:27] LABS: HEMATOCRIT 43.4 % (42.0-52.0); HEMOGLOBIN 14.4 g/dl (13.5-17.5); MEAN CORPUSCULAR HEMOGLOBIN 31.8 pg (27.0-33.0); MEAN CORPUSCULAR HGB CONC 33.2 g/dl (32.0-36.5); MEAN CORPUSCULAR VOLUME 95.8 fl (80.0-96.0); PLATELET COUNT, AUTOMATED 212 10^3/uL (150-450); RED BLOOD COUNT 4.53 10^6/uL (4.30-6.10); WHITE BLOOD COUNT 15.8 10^3/uL (4.0-10.0)
[2024-11-26 05:48] LABS: BLOOD UREA NITROGEN 20 MG/DL (9-23); CALCIUM LEVEL 9.3 MG/DL (8.5-10.1); CARBON DIOXIDE LEVEL 26 MMOL/L (20-31); CHLORIDE LEVEL 106 MMOL/L (98-107); CREATININE FOR GFR 0.98 MG/DL (0.70-1.30); GLOMERULAR FILTRATION RATE > 90.0 (>56); GLUCOSE, FASTING 118 MG/DL (60-100); POTASSIUM SERUM 4.6 MMOL/L (3.5-5.1); SODIUM LEVEL 140 MMOL/L (136-145)
[2024-11-26] MEDS ORDERED: AZITHROMYCIN INJ 500 MG, VIAL MATE ADAPTER 1 EACH in NS 250 ML IV SCH (09:00)
[2024-11-26] MEDS ORDERED: predniSONE 20 MG TAB PO SCH (09:00)
[2024-11-26] MEDS: AZITHROMYCIN 250MG TABLET PO SCH (10:16)
[2024-11-26] MEDS: cefTRIAXone SOD 2 GM in DEXTROSE 5% (D5W) ADV/MINI-BAG 50 ML IV SCH (10:16)
[2024-11-26] MEDS: methylPREDNISolone 40MG 1ML VIAL IV SCH (10:17)
[2024-11-26 12:00] VITALS: BP 127/70; TEMP 97.3; O2SAT 93
[2024-11-26 14:19] VITALS: O2SAT 92
[2024-11-26 19:58] VITALS: BP 114/68; TEMP 97.3; O2SAT 92
[2024-11-27 04:00] VITALS: BP 123/73; TEMP 97.5; O2SAT 90
[2024-11-27 06:12] LABS: BASO % 0.1 % (0.0-1.0); HEMATOCRIT 41.3 % (42.0-52.0); HEMOGLOBIN 13.6 g/dl (13.5-17.5); LYMPH # 1.2 10^3/uL (1.5-5.0); LYMPH % 8.2 % (24.0-44.0); MEAN CORPUSCULAR HEMOGLOBIN 31.6 pg (27.0-33.0); MEAN CORPUSCULAR HGB CONC 32.9 g/dl (32.0-36.5); MEAN CORPUSCULAR VOLUME 95.8 fl (80.0-96.0); MONO # 0.8 10^3/uL (0.0-0.8); MONO % 5.7 % (2.0-8.0); NEUTROPHILS # 12.3 10^3/uL (1.5-8.5); NEUTROPHILS % 85.5 % (36.0-66.0); PLATELET COUNT, AUTOMATED 221 10^3/uL (150-450); RED BLOOD COUNT 4.31 10^6/uL (4.30-6.10); WHITE BLOOD COUNT 14.4 10^3/uL (4.0-10.0)
[2024-11-27 06:38] LABS: BLOOD UREA NITROGEN 20 MG/DL (9-23); CARBON DIOXIDE LEVEL 28 MMOL/L (20-31); CHLORIDE LEVEL 107 MMOL/L (98-107); CREATININE FOR GFR 0.86 MG/DL (0.70-1.30); GLOMERULAR FILTRATION RATE > 90.0 (>56); GLUCOSE, FASTING 135 MG/DL (60-100); POTASSIUM SERUM 4.6 MMOL/L (3.5-5.1); SODIUM LEVEL 142 MMOL/L (136-145)
[2024-11-27] MEDS ORDERED: PRED10TA2 PO (08:54)
[2024-11-27] MEDS ORDERED: CEFD1CAP9 PO (08:54)
[2024-11-27] MEDS ORDERED: AZIT500T5 PO (08:54)
[2024-11-27] MEDS ORDERED: ALBU2.5V10 INH (08:54)
== END 2024-11-27 10:43 | disposition home or self-care (01) | DRG 190 ==
LOC: M ED 09:04 → M ED INP 10:51 → M MSPAV 11:52
PROVIDERS: ADMIT Internal Medicine; ATTEND Internal Medicine
DX: J44.1 Chronic obstructive pulmonary disease with (acute) exacerbation (principal); J15.69 Pneumonia due to other Gram-negative bacteria; J44.0 Chronic obstructive pulmonary disease with (acute) lower respiratory infection; F17.210 Nicotine dependence, cigarettes, uncomplicated; N52.9 Male erectile dysfunction, unspecified; L40.9 Psoriasis, unspecified; K76.0 Fatty (change of) liver, not elsewhere classified; Z79.51 Long term (current) use of inhaled steroids; Z79.899 Other long term (current) drug therapy; Z88.5 Allergy status to narcotic agent

== ENCOUNTER → 2025-01-30 | Outpatient (REF) | payer OTHER ==
[~2025-01-30] MED LIST changes: +AZIT500T5 PO; +CEFD1CAP9 PO; +RISA150P SC; +SILD100T PO
== END ==
LOC: M SFHCADAM 14:41
PROVIDERS: ATTEND Physician Assistant
DX: Z12.83 Encounter for screening for malignant neoplasm of skin (principal); L40.9 Psoriasis, unspecified; Z79.899 Other long term (current) drug therapy

== ENCOUNTER 2025-03-06 07:14 | Inpatient (IN) | payer OTHER ==
[~2025-03-06] VITALS: Ht 180.3 cm; Wt 87.6 kg
[2025-03-06 08:04] LABS: BASO # 0.1 10^3/uL (0.0-0.2); BASO % 0.8 % (0.0-1.0); EOS # 4.4 10^3/uL (0.0-0.5); LYMPH # 1.7 10^3/uL (1.5-5.0); LYMPH % 15.5 % (24.0-44.0); MONO # 0.6 10^3/uL (0.0-0.8); MONO % 5.6 % (2.0-8.0); NEUTROPHILS # 4.2 10^3/uL (1.5-8.5); NEUTROPHILS % 38.3 % (36.0-66.0); PLATELET COUNT, AUTOMATED 203 10^3/uL (150-450)
[2025-03-06] MEDS: IPRATROPIUM 0.5 MG/ALBUTEROL 2.5 MG INH SOL UD 3 ML NEB PRN (08:21)
[2025-03-06 08:29] LABS: ALT/SGPT 25 U/L (7.0-40); AST/SGOT 20 U/L (<34); CALCIUM LEVEL 9.0 MG/DL (8.5-10.1); CARBON DIOXIDE LEVEL 26 MMOL/L (20-31); CHLORIDE LEVEL 110 MMOL/L (98-107); CREATININE FOR GFR 0.90 MG/DL (0.70-1.30); GLOMERULAR FILTRATION RATE > 90.0 (>56); POTASSIUM SERUM 4.2 MMOL/L (3.5-5.1); SODIUM LEVEL 145 MMOL/L (136-145)
[2025-03-06 08:35] LABS: EOS % 39.7 % (0.0-3.0)
[2025-03-06 08:39] LABS: VENOUS BASE EXCESS -1.4 (-2.0-2.0); VENOUS HCO3 24.0 MMOL/L (23.0-27.0); VENOUS O2 SATURATION 94.4 % (60.0-80.0); VENOUS PARTIAL PRESSURE CO2 42.8 mmHg (38.0-50.0); VENOUS PARTIAL PRESSURE O2 73.9 mmHg (30.0-50.0); VENOUS PH 7.366 UNITS (7.330-7.430); VENOUS STANDARD HCO3 23.2 MMOL/L; VENOUS TOTAL CO2 25.3 MMOL/L (24.0-28.0)
[2025-03-06] MEDS ORDERED: ISOVUE-370 76% 100 ML VIAL As Ordered ONE (08:55)
[2025-03-06] MEDS: ENOXAPARIN 40 MG/0.4 ML SYRINGE (J1650 PER 10MG) SC SCH (09:00)
[2025-03-06 10:18] VITALS: O2SAT 89
[2025-03-06] MEDS ORDERED: ALBU2.5V10 INH (10:41)
[2025-03-06] MEDS ORDERED: HOME MED LIST COMPLETE! XX SCH (10:45)
[2025-03-06 12:18] VITALS: BP 130/72; TEMP 97.7; O2SAT 92
[2025-03-06] MEDS: IPRATROPIUM 0.5 MG/ALBUTEROL 2.5 MG INH SOL UD 3 ML NEB SCH (19:11)
[2025-03-06 21:35] VITALS: BP 114/65; TEMP 97.5; O2SAT 90
[2025-03-07 06:09] VITALS: BP 136/79; TEMP 97.9; O2SAT 88
[2025-03-07 07:28] LABS: PLATELET COUNT, AUTOMATED 223 10^3/uL (150-450)
[2025-03-07 07:44] LABS: CALCIUM LEVEL 8.9 MG/DL (8.5-10.1); CARBON DIOXIDE LEVEL 22 MMOL/L (20-31); CHLORIDE LEVEL 106 MMOL/L (98-107); CREATININE FOR GFR 0.84 MG/DL (0.70-1.30); GLOMERULAR FILTRATION RATE > 90.0 (>56); POTASSIUM SERUM 4.5 MMOL/L (3.5-5.1); SODIUM LEVEL 141 MMOL/L (136-145)
[2025-03-07 10:00] VITALS: BP 123/67; TEMP 97.9; O2SAT 89
[2025-03-07 14:00] VITALS: BP 147/85; TEMP 97.7; O2SAT 90
[2025-03-07 21:53] VITALS: BP 149/77; TEMP 97.7; O2SAT 92
[2025-03-07 23:31] VITALS: BP 137/85; TEMP 97.7; O2SAT 90
[2025-03-08] MEDS: IPRATROPIUM 0.5 MG/ALBUTEROL 2.5 MG INH SOL UD 3 ML NEB PRN (00:06)
[2025-03-08 05:54] VITALS: BP 131/82; TEMP 97.9; O2SAT 91
[2025-03-08 07:26] LABS: PLATELET COUNT, AUTOMATED 223 10^3/uL (150-450)
[2025-03-08 07:56] LABS: CALCIUM LEVEL 8.9 MG/DL (8.5-10.1); CARBON DIOXIDE LEVEL 26 MMOL/L (20-31); CHLORIDE LEVEL 107 MMOL/L (98-107); CREATININE FOR GFR 0.91 MG/DL (0.70-1.30); GLOMERULAR FILTRATION RATE > 90.0 (>56); POTASSIUM SERUM 4.8 MMOL/L (3.5-5.1); SODIUM LEVEL 143 MMOL/L (136-145)
[2025-03-08 10:00] VITALS: BP 137/82; TEMP 97.9; O2SAT 91
[2025-03-08 14:00] VITALS: BP 147/81; TEMP 97; O2SAT 90
[2025-03-08 18:00] VITALS: BP 137/71; TEMP 97.5; O2SAT 92
[2025-03-08 21:26] VITALS: BP 143/92; TEMP 97.5; O2SAT 91
[2025-03-08 23:52] VITALS: BP 141/73; TEMP 97.9; O2SAT 92
[2025-03-09 05:55] VITALS: BP 134/73; TEMP 97.5; O2SAT 91
[2025-03-09 07:11] LABS: PLATELET COUNT, AUTOMATED 208 10^3/uL (150-450)
[2025-03-09 07:32] LABS: CALCIUM LEVEL 8.9 MG/DL (8.5-10.1); CARBON DIOXIDE LEVEL 26 MMOL/L (20-31); CHLORIDE LEVEL 107 MMOL/L (98-107); CREATININE FOR GFR 0.90 MG/DL (0.70-1.30); GLOMERULAR FILTRATION RATE > 90.0 (>56); POTASSIUM SERUM 4.6 MMOL/L (3.5-5.1); SODIUM LEVEL 142 MMOL/L (136-145)
[2025-03-09] MEDS: AZITHROMYCIN 250 MG TABLET PO SCH (08:18)
[2025-03-09] MEDS ORDERED: PRED20TA PO (11:25)
[2025-03-09] MEDS ORDERED: IPRA0.00 NEB (11:25)
[2025-03-09] MEDS ORDERED: AZIT-12 PO (11:25)
[2025-03-09] MEDS: methylPREDNISolone 80 MG/ML SUSP 1 ML VIAL IM ONE (12:06)
== END 2025-03-09 12:30 | disposition home or self-care (01) | DRG 192 ==
LOC: M ED 07:14 → M ED INP 11:37 → M MS5PR 12:18
PROVIDERS: ADMIT Family Medicine; ATTEND Family Medicine
DX: J44.1 Chronic obstructive pulmonary disease with (acute) exacerbation (principal); L40.9 Psoriasis, unspecified; Z87.891 Personal history of nicotine dependence; Z79.899 Other long term (current) drug therapy; Z88.5 Allergy status to narcotic agent; Z77.090 Contact with and (suspected) exposure to asbestos